=== PATIENT | female | born 1960 | race Caucasian/White ===

== ENCOUNTER 2017-03-19 13:51 | Emergency (ER) | payer OTHER ==
[2017-03-19 16:40] LABS: CALCIUM 9.2 mg/dL (8.5-10.1); CARBON DIOXIDE 23.1 mmol/L (21-32); CHLORIDE SERUM 105 mmol/L (98-107); CREATININE SERUM 0.9 mg/dL (0.6-1.0); GFR1 > 60 mL/min; GLUCOSE SERUM 163 mg/dL (74-106); POTASSIUM SERUM 3.7 mmol/L (3.5-5.1); SODIUM SERUM 141 mmol/L (136-145)
[2017-03-19 16:59] LABS: BASOPHIL % 0.3 % (0-2); PLATELET COUNT 178 x10^3mcL (130-400)
[2017-03-19 17:00] LABS: RED CELL DISTRIBUTION WIDTH 19.5 % (11.5-14.5)
[2017-03-19 18:24] VITALS: BP 110/76
== END 2017-03-19 18:24 | disposition home or self-care (01) ==
LOC: ED 13:51 → EDSEX 13:51 → ED 18:24
PROVIDERS: Emergency Medicine
DX: M50.90 Cervical disc disorder, unspecified, unspecified cervical region (principal); M51.86 Other intervertebral disc disorders, lumbar region; S20.211A Contusion of right front wall of thorax, initial encounter; E11.9 Type 2 diabetes mellitus without complications; I45.10 Unspecified right bundle-branch block; I25.10 Atherosclerotic heart disease of native coronary artery without angina pectoris; F11.20 Opioid dependence, uncomplicated; Z79.899 Other long term (current) drug therapy; Z88.0 Allergy status to penicillin; V49.50XA Passenger injured in collision with unspecified motor vehicles in traffic accident, initial encounter; Y93.89 Activity, other specified; Y92.89 Other specified places as the place of occurrence of the external cause; Y99.8 Other external cause status
CPT/HCPCS: J1885